=== PATIENT | male | born 1995 | race African-American/Black ===

== ENCOUNTER 2019-04-21 13:15 | Emergency (ER) | payer BC ==
[~2019-04-21] VITALS: Ht 193 cm; Wt 93.9 kg
[2019-04-21] MEDS ORDERED: NKM (13:22)
[2019-04-21] MEDS ORDERED: ANUSOL-HC30 GM RC (13:45)
--- NOTE | 2019-04-21 13:45 | Emergency Room Report ---
History of Present Illness General Chief Complaint: General Complaint Source: Patient Present Illness HPI 24 year old male no pmhx, no surghx presents with spotting of blood when defecating today, no aggravating or alleviating factors, severity was mild, lasted less than a minute, patient denies feeling cp or lightheadedness, no abdominal pain. Patient was concerned and wanted to make sure everything is okay. Allergies: Coded Allergies: No Known Allergies (Unverified , 04/21/19) Patient History Past Medical History: see triage record Reviewed Nursing Documentation: PMH: Agreed; PSxH: Agreed Nursing Documentation-PMH Past Medical History: No Stated History Review of Systems All Other Systems: negative except mentioned in HPI Physical Exam Vital Signs Date Time Temp Pulse Resp B/P (MAP) Pulse Ox O2 Delivery O2 Flow Rate FiO2 04/21/19 13:19 97.2 100 18 133/82 (99) 99 Room Air General Appearance: well appearing, no apparent distress Head: normocephalic, atraumatic ENT: hearing grossly normal, normal voice Neck: full range of motion, supple Respiratory: no respiratory distress, speaking full sentences Gastrointestinal: non tender, soft Rectal: hemorrhoids, other - [place] Clerk Clarice KENT Neurologic: alert, normal gait Psychiatric: mood/affect normal Skin: no rash Medical Decision Making Diagnostic Impression: Primary Impression: External hemorrhoid, bleeding ER Course Pt with hemorrhoid patient counseled supportive care. Will provide script Follow-up with colorectal surgery Last Vital Signs Date Time Temp Pulse Resp B/P (MAP) Pulse Ox O2 Delivery O2 Flow Rate FiO2 04/21/19 13:19 97.2 100 18 133/82 (99) 99 Room Air Disposition: HOME, SELF-CARE Condition: Stable Scripts Hydrocortisone Hc 2.5% Cream (ANUSOL-HC 2.5% CREAM) Y Cr 30 GM RC QID for 7 Days, #1 GM Prov: Prateek Delaney MD 04/21/[address]: [facility]. [facility] Patient Instructions: Hemorrhoids, [id number] Additional Instructions: The patient was provided with discharge instructions, notified to follow-up with a primary care doctor and or specialist in the next 24-48 hours, and to return to the ED if they have worsening of their symptoms. Please note that this report is being documented using DRAGON technology. This can lead to erroneous entry secondary to incorrect interpretation by the dictating instrument. Prateek Delaney MD Apr 21, 2019 13:45
--- NOTE | 2019-04-21 13:45 | NUR ---
ED Nurse Note:pt. had rectal exam by ER MD in my presence, then he received d/c instructions with prescription and left ER with steady gait
[2019-04-21 14:00] VITALS: BP 133/82
[2019-04-21 14:06] VITALS: BP 133/82
== END 2019-04-21 15:00 | disposition home or self-care (01) ==
LOC: EMR 13:42
DX: K64.4 Residual hemorrhoidal skin tags (principal)
CPT/HCPCS: 99282